=== PATIENT | female | born 1995 | race Caucasian/White ===

== ENCOUNTER 2017-04-28 00:11 | Emergency (ER) | payer MEDICAID ==
[2017-04-28 01:20] LABS: BASOPHIL % 0.6 % (0-2); PLATELET COUNT 312 x10^3mcL (130-400); RED CELL DISTRIBUTION WIDTH 14.5 % (11.5-14.5)
[2017-04-28 01:27] LABS: microscopic required? YES; urine erythrocyte 2+ (NEGATIVE)
[2017-04-28 01:36] LABS: CARBON DIOXIDE 26.6 mmol/L (21-32); CHLORIDE SERUM 103 mmol/L (98-107); CREATININE SERUM 0.7 mg/dL (0.6-1.0); GFR1 > 60 mL/min; GLUCOSE SERUM 104 mg/dL (74-106); POTASSIUM SERUM 3.9 mmol/L (3.5-5.1); SODIUM SERUM 138 mmol/L (136-145)
[2017-04-28 02:46] VITALS: BP 128/76
== END 2017-04-28 02:47 | disposition home or self-care (01) ==
LOC: ED 00:11
PROVIDERS: Emergency Medicine
DX: R10.32 Left lower quadrant pain (principal); R82.71 Bacteriuria; J45.909 Unspecified asthma, uncomplicated; F12.90 Cannabis use, unspecified, uncomplicated
CPT/HCPCS: 36415; J1885

== ENCOUNTER 2017-07-29 23:16 | Emergency (ER) | payer OTHER ==
[2017-07-30 00:55] VITALS: BP 124/83
== END 2017-07-30 00:55 | disposition home or self-care (01) ==
LOC: ED 23:16
DX: R59.1 Generalized enlarged lymph nodes (principal); J45.909 Unspecified asthma, uncomplicated

== ENCOUNTER 2017-10-08 22:46 | Emergency (ER) | payer OTHER ==
[~2017-10-08] VITALS: Ht 160 cm; Wt 90.8 kg
[2017-10-08 23:00] VITALS: Ht 160 cm; Wt 90.8 kg
[2017-10-08 23:49] LABS: BASOPHIL % 0.9 % (0-2); PLATELET COUNT 350 x10^3mcL (130-400); RED CELL DISTRIBUTION WIDTH 14.2 % (11.5-14.5)
[2017-10-08 23:58] LABS: CALCIUM 8.9 mg/dL (8.5-10.1); CARBON DIOXIDE 26.3 mmol/L (21-32); CHLORIDE SERUM 100 mmol/L (98-107); CREATININE SERUM 0.7 mg/dL (0.6-1.0); GFR1 > 60 mL/min; GLUCOSE SERUM 136 mg/dL (74-106); POTASSIUM SERUM 3.5 mmol/L (3.5-5.1); SODIUM SERUM 137 mmol/L (136-145)
[2017-10-09 01:32] VITALS: BP 132/76
== END 2017-10-09 01:32 | disposition home or self-care (01) ==
LOC: ED 22:46
PROVIDERS: Emergency Medicine
DX: R04.2 Hemoptysis (principal); J45.909 Unspecified asthma, uncomplicated
CPT/HCPCS: J7030; Q0092; Q9967

== ENCOUNTER 2018-02-14 18:07 | Emergency (ER) | payer OTHER ==
[~2018-02-14] VITALS: Ht 160 cm; Wt 89.3 kg
[2018-02-14 18:22] VITALS: Ht 160 cm; Wt 89.3 kg
[2018-02-14 20:58] LABS: microscopic required? YES; urine erythrocyte TRACE (NEGATIVE)
[2018-02-14 22:07] VITALS: BP 131/81
== END 2018-02-14 22:07 | disposition home or self-care (01) ==
LOC: ED 18:07
PROVIDERS: Emergency Medicine
DX: R10.2 Pelvic and perineal pain (principal); J45.909 Unspecified asthma, uncomplicated
CPT/HCPCS: J1885

== ENCOUNTER 2018-11-14 20:33 | Emergency (ER) | payer OTHER ==
[~2018-11-14] VITALS: Ht 160 cm; Wt 93.7 kg
[2018-11-14 21:05] VITALS: Ht 160 cm; Wt 93.7 kg
[2018-11-14 22:40] VITALS: BP 130/95
== END 2018-11-14 22:40 | disposition home or self-care (01) ==
LOC: ED 20:33
DX: F41.9 Anxiety disorder, unspecified (principal); G43.909 Migraine, unspecified, not intractable, without status migrainosus; J45.909 Unspecified asthma, uncomplicated; E78.00 Pure hypercholesterolemia, unspecified
CPT/HCPCS: J1885

== ENCOUNTER 2018-11-23 17:38 | Emergency (ER) | payer OTHER ==
[~2018-11-23] VITALS: Ht 160 cm; Wt 92.5 kg
[2018-11-23 17:50] VITALS: Ht 160 cm; Wt 92.5 kg
[2018-11-23 19:46] LABS: BASOPHIL % 0.4 % (0-2); PLATELET COUNT 271 x10^3mcL (130-400); RED CELL DISTRIBUTION WIDTH 13.6 % (11.5-14.5)
[2018-11-23 19:55] LABS: CALCIUM 9.3 mg/dL (8.5-10.1); CHLORIDE SERUM 98 mmol/L (98-107); CREATININE SERUM 0.8 mg/dL (0.6-1.0); GFR1 > 60 mL/min; GLUCOSE SERUM 117 mg/dL (74-106); POTASSIUM SERUM 3.7 mmol/L (3.5-5.1); SODIUM SERUM 134 mmol/L (136-145)
[2018-11-23 20:06] LABS: microscopic required? YES; urine erythrocyte 2+ (NEGATIVE)
[2018-11-23 20:09] LABS: ALBUMIN 4.2 g/dL (3.4-5.0); ALKALINE PHOSPHATASE 77 U/L (46-116); ALT/SGPT 83 U/L (14-59); AST/SGOT 74 U/L (15-37); BILIRUBIN TOTAL 0.6 mg/dL (0.20-1.00)
[2018-11-23 20:12] LABS: TOTAL PROTEIN, SERUM 8.5 g/dL (6.4-8.2)
[2018-11-23 20:54] VITALS: BP 117/79
== END 2018-11-23 21:39 | disposition home or self-care (01) ==
LOC: ED 17:38
PROVIDERS: Emergency Medicine
DX: J11.1 Influenza due to unidentified influenza virus with other respiratory manifestations (principal); J45.909 Unspecified asthma, uncomplicated; E78.00 Pure hypercholesterolemia, unspecified
CPT/HCPCS: 87804; J7030; Q0092

== ENCOUNTER 2019-02-15 00:16 | Emergency (ER) | payer OTHER ==
[~2019-02-15] VITALS: Ht 160 cm; Wt 95.3 kg
[2019-02-15 00:40] VITALS: Ht 160 cm; Wt 95.3 kg
[2019-02-15 01:33] VITALS: BP 121/77
== END 2019-02-15 01:33 | disposition home or self-care (01) ==
LOC: ED 00:16
DX: S93.402A Sprain of unspecified ligament of left ankle, initial encounter (principal); J45.909 Unspecified asthma, uncomplicated; E78.00 Pure hypercholesterolemia, unspecified; X50.1XXA Overexertion from prolonged static or awkward postures, initial encounter; Y93.89 Activity, other specified; Y92.89 Other specified places as the place of occurrence of the external cause; Y99.8 Other external cause status